=== PATIENT | female | born 1995 | race Caucasian/White ===

== ENCOUNTER 2017-10-28 11:40 | Emergency (ER) | payer OTHER ==
[~2017-10-28] VITALS: Ht 160 cm; Wt 113.2 kg
[~2017-10-28 11:40] MED LIST: DOXY1TAB3 PO; IBUP-1223 PO; PREN1TAB60 PO
[2017-10-28 12:22] LABS: BASOPHILS # (AUTO) 0.04 x10^3/uL (0-0.1); BASOPHILS % (AUTO) 0 % (0-1); EOSINOPHILS # (AUTO) 0.08 x10^3/uL (0-0.4); EOSINOPHILS % (AUTO) 1 % (1-7); LYMPHOCYTES # (AUTO) 1.62 x10^3/uL (1-3.4); LYMPHOCYTES % (AUTO) 15 % (22-44); MD NO; MEAN CORPUSCULAR HEMOGLOBIN 28.7 pg (27.0-34.8); MEAN CORPUSCULAR HGB CONC 33.3 g/dL (32.4-35.8); MEAN CORPUSCULAR VOLUME 86.2 fL (80-100); MEAN PLATELET VOLUME 8.1 fL (7.4-10.4); MONOCYTES % (AUTO) 7 % (2-9); NEUTROPHILS # (AUTO) 8.38 x10^3/uL (1.8-6.8); NEUTROPHILS % (AUTO) 77 % (42-75); PLATELET COUNT 321 x10^3/uL (130-400)
[2017-10-28 12:32] LABS: ALBUMIN 3.6 g/dL (3.4-5.0); ANION GAP 13 mmol/L (5-15); CALCIUM 9.9 mg/dL (8.5-10.1); CHLORIDE 97 mmol/L (98-107); CREATININE 1.41 mg/dL (0.55-1.02)
[2017-10-28 12:37] LABS: ALANINE AMINOTRANSFERASE 38 U/L (12-78); ALKALINE PHOSPHATASE 87 U/L (45-117); BILIRUBIN,TOTAL 0.6 mg/dL (0.2-1.0); TOTAL PROTEIN 8.7 g/dL (6.4-8.2)
[2017-10-28] MEDS ORDERED: PROMETHAZINE 25 MG/ML, 1ML ONE (15:00)
[2017-10-28] MEDS ORDERED: MAALOX/HYOSCYAMINE/LIDOCAINE 45 ML BTL PO ONE (15:00)
[2017-10-28] MEDS ORDERED: PROMETHAZINE 25 MG/ML, 1ML IM ONE (15:00)
[2017-10-28] MEDS ORDERED: SODIUM CHLORIDE FLUSH 10ML SYR IVF ONE (15:00)
[2017-10-28] MEDS ORDERED: MAALOX/HYOSCYAMINE/LIDOCAINE 45 ML BTL ONE (15:00)
[2017-10-28] MEDS ORDERED: FAMOTIDINE 20 MG TABLET PO ONE (15:00)
[2017-10-28] MEDS ORDERED: FAMOTIDINE 20 MG/2 ML IVP ONE (15:00)
[2017-10-28] MEDS ORDERED: SODIUM CHLORIDE 0.9% 1,000ML IVBOLUS ONE (15:00)
[2017-10-28] MEDS ORDERED: FAMOTIDINE 20 MG/2 ML ONE (15:01)
[2017-10-28 15:34] LABS: MICROSCOPIC INDICATED
[2017-10-28 15:35] LABS: CULTURE INDICATED? YES
[2017-10-28] MEDS ORDERED: SODIUM CHLORIDE 0.9%, 500ML IVBOLUS ONE (16:00)
[2017-10-28 16:48] VITALS: BP 116/60
== END 2017-10-28 17:22 | disposition home or self-care (01) ==
LOC: ED 15:55
DX: R11.2 Nausea with vomiting, unspecified (principal); R19.7 Diarrhea, unspecified; R10.11 Right upper quadrant pain; R10.13 Epigastric pain
CPT/HCPCS: 36415; 76700; 80053; 81001; 83690; 84703; 85025; 87086; 96361; 96372; 96374; 99285; J2550; J7030; J7040; S0028

== ENCOUNTER 2019-04-26 11:56 | Inpatient (IN) | payer OTHER ==
[~2019-04-26] VITALS: Ht 160 cm; Wt 104.0 kg
[2019-04-26] MEDS ORDERED: ONDANSETRON 2MG/ML, 2ML IVPush PRN (12:30)
[2019-04-26 12:34] LABS: MICROSCOPIC AUTO
[2019-04-26 12:36] LABS: BASOPHILS # (AUTO) 0.04 x10^3/uL (0-0.1); BASOPHILS % (AUTO) 0 % (0-1); EOSINOPHILS # (AUTO) 0.04 x10^3/uL (0-0.4); EOSINOPHILS % (AUTO) 0 % (1-7); LYMPHOCYTES # (AUTO) 2.16 x10^3/uL (1-3.4); LYMPHOCYTES % (AUTO) 21 % (22-44); MD NO; MEAN CORPUSCULAR HEMOGLOBIN 29.8 pg (27.0-34.8); MEAN CORPUSCULAR HGB CONC 33.8 g/dL (32.4-35.8); MEAN CORPUSCULAR VOLUME 87.9 fL (80-100); MEAN PLATELET VOLUME 8.2 fL (7.4-10.4); MONOCYTES # (AUTO) 0.49 x10^3/uL (0.2-0.8); MONOCYTES % (AUTO) 5 % (2-9); NEUTROPHILS # (AUTO) 7.81 x10^3/uL (1.8-6.8); NEUTROPHILS % (AUTO) 74 % (42-75); PLATELET COUNT 143 x10^3/uL (130-400); RED BLOOD COUNT 4.38 x10^6/uL (3.82-5.3); RED CELL DISTRIBUTION WIDTH 14.4 % (9.6-15.2)
[2019-04-26 12:46] LABS: ALANINE AMINOTRANSFERASE 51 U/L (12-78); ALBUMIN 2.6 g/dL (3.4-5.0); ANION GAP 8 mmol/L (5-15); CALCIUM 9.7 mg/dL (8.5-10.1); CHLORIDE 107 mmol/L (98-107)
[2019-04-26 12:49] LABS: ALKALINE PHOSPHATASE 75 U/L (45-117); BILIRUBIN,TOTAL 0.4 mg/dL (0.2-1.0); CREATININE 0.97 mg/dL (0.55-1.02); TOTAL PROTEIN 7.2 g/dL (6.4-8.2)
[2019-04-26] MEDS ORDERED: PLEASE ENTER HEIGHT AND WEIGHT MC SCH (13:00)
[2019-04-26] MEDS ORDERED: METF500T17 PO (13:12)
[2019-04-26] MEDS ORDERED: LABE300T2 PO (13:12)
[2019-04-26] MEDS ORDERED: NIFE60TA2 PO (13:13)
[2019-04-26] MEDS ORDERED: NPH,100V SQ (13:15)
[2019-04-26] MEDS: LABETALOL 200 MG TABLET PO SCH ×2 (15:00→19:58)
[2019-04-26] MEDS ORDERED: DOCUSATE 100 MG CAPSULE PO PRN (15:00)
[2019-04-26] MEDS: metFORMIN 500 MG TABLET PO SCH (17:14)
[2019-04-26 18:00] LABS: MICROSCOPIC NOT IND
[2019-04-26] MEDS ORDERED: LABETALOL 200 MG TABLET ONE (19:56)
[2019-04-26 21:00] VITALS: BP 154/108
[2019-04-26] MEDS ORDERED: SODIUM CHLORIDE FLUSH 10ML SYR IVF SCH (21:00)
[2019-04-26] MEDS ORDERED: METHYLERGONOVINE 0.2 MG/ML IM ONE (21:30)
[2019-04-26] MEDS: INSULIN NPH HUMAN 100 UNIT/ML, 3ML VIAL SQ-INSULIN SCH (22:19)
[2019-04-27 02:23] LABS: BASOPHILS # (AUTO) 0.03 x10^3/uL (0-0.1); BASOPHILS % (AUTO) 0 % (0-1); EOSINOPHILS # (AUTO) 0.11 x10^3/uL (0-0.4); EOSINOPHILS % (AUTO) 1 % (1-7); LYMPHOCYTES % (AUTO) 18 % (22-44); MD NO; MEAN CORPUSCULAR HEMOGLOBIN 29.5 pg (27.0-34.8); MEAN CORPUSCULAR HGB CONC 33.3 g/dL (32.4-35.8); MEAN CORPUSCULAR VOLUME 88.7 fL (80-100); MEAN PLATELET VOLUME 8.3 fL (7.4-10.4); MONOCYTES # (AUTO) 0.64 x10^3/uL (0.2-0.8); MONOCYTES % (AUTO) 6 % (2-9); NEUTROPHILS # (AUTO) 8.56 x10^3/uL (1.8-6.8); NEUTROPHILS % (AUTO) 76 % (42-75); PLATELET COUNT 117 x10^3/uL (130-400); RED BLOOD COUNT 4.23 x10^6/uL (3.82-5.3); RED CELL DISTRIBUTION WIDTH 14.6 % (9.6-15.2)
[2019-04-27 02:29] LABS: ALANINE AMINOTRANSFERASE 64 U/L (12-78); ALBUMIN 2.4 g/dL (3.4-5.0); ANION GAP 9 mmol/L (5-15); CALCIUM 9.2 mg/dL (8.5-10.1); CHLORIDE 108 mmol/L (98-107); CREATININE 0.69 mg/dL (0.55-1.02)
[2019-04-27 02:31] LABS: ALKALINE PHOSPHATASE 73 U/L (45-117); BILIRUBIN,TOTAL 0.5 mg/dL (0.2-1.0); TOTAL PROTEIN 6.9 g/dL (6.4-8.2)
[2019-04-27] MEDS ORDERED: BETAMETHASONE 6 MG/ML, 5ML IM ONE (02:39)
[2019-04-27] MEDS: BETAMETHASONE 6 MG/ML, 5ML IM SCH (02:46)
[2019-04-27] MEDS: D5%-LACTATED RINGERS 1,000 ML IV SCH ×2 (02:50→12:30)
[2019-04-27] MEDS ORDERED: LABETALOL 200 MG TABLET ONE ×2 (03:56→12:16)
[2019-04-27] MEDS ORDERED: LABETALOL 100 MG TABLET ONE ×3 (04:04→20:27)
[2019-04-27] MEDS: LABETALOL 200 MG TABLET PO SCH (04:11)
[2019-04-27 05:43] LABS: MEAN CORPUSCULAR HGB CONC 33.4 g/dL (32.4-35.8); MEAN CORPUSCULAR VOLUME 89.6 fL (80-100); MEAN PLATELET VOLUME 8.5 fL (7.4-10.4); PLATELET COUNT 99 x10^3/uL (130-400); RED BLOOD COUNT 4.28 x10^6/uL (3.82-5.3); RED CELL DISTRIBUTION WIDTH 14.5 % (9.6-15.2)
[2019-04-27 05:46] LABS: CHLORIDE 107 mmol/L (98-107)
[2019-04-27 05:53] LABS: ALANINE AMINOTRANSFERASE 75 U/L (12-78); ALBUMIN 2.5 g/dL (3.4-5.0); ALKALINE PHOSPHATASE 76 U/L (45-117); ANION GAP 9 mmol/L (5-15); BILIRUBIN,TOTAL 0.6 mg/dL (0.2-1.0); CALCIUM 9.3 mg/dL (8.5-10.1); CREATININE 0.63 mg/dL (0.55-1.02); TOTAL PROTEIN 6.8 g/dL (6.4-8.2)
[2019-04-27] MEDS ORDERED: MAGNESIUM SULF. PMX 20GM/500ML 500 ML IV ONE ×3 (08:06→23:59)
[2019-04-27] MEDS ORDERED: MAGNESIUM SULFATE PMX 4GM/100M 0 ML ONE (08:06)
[2019-04-27] MEDS ORDERED: MAGNESIUM SULFATE PMX 2GM/50ML 0 ML ONE (08:07)
[2019-04-27] MEDS ORDERED: ONDANSETRON 2MG/ML, 2ML ONE (08:16)
[2019-04-27] MEDS ORDERED: MAGNESIUM SULFATE PMX 4GM/100M 100 ML IVPB ONE (08:30)
[2019-04-27] MEDS ORDERED: MAGNESIUM SULFATE PMX 2GM/50ML 50 ML IVPB ONE (08:30)
[2019-04-27] MEDS ORDERED: niFEDipine ER 60 MG TABLET.ER PO ONE (08:54)
[2019-04-27] MEDS ORDERED: metFORMIN 500 MG TABLET ONE ×3 (08:54→17:17)
[2019-04-27] MEDS ORDERED: PRENATAL VIT/IRON/FA 1 EACH TABLET ONE (08:57)
[2019-04-27] MEDS: metFORMIN 500 MG TABLET PO SCH ×2 (09:00→17:19)
[2019-04-27] MEDS: niFEDipine ER 60 MG TABLET.ER PO SCH (09:00)
[2019-04-27] MEDS ORDERED: NEWBORN KIT ONE ×2 (10:05)
[2019-04-27 10:50] LABS: MICROSCOPIC AUTO
[2019-04-27] MEDS ORDERED: LABETALOL 100 MG TABLET PO ONE (12:30)
[2019-04-27 12:48] LABS: MEAN CORPUSCULAR HGB CONC 33.5 g/dL (32.4-35.8); MEAN CORPUSCULAR VOLUME 89.5 fL (80-100); MEAN PLATELET VOLUME 8.5 fL (7.4-10.4); PLATELET COUNT 113 x10^3/uL (130-400); RED BLOOD COUNT 4.43 x10^6/uL (3.82-5.3); RED CELL DISTRIBUTION WIDTH 14.7 % (9.6-15.2)
[2019-04-27 12:49] LABS: ALANINE AMINOTRANSFERASE 78 U/L (12-78); ALBUMIN 2.6 g/dL (3.4-5.0); ANION GAP 10 mmol/L (5-15); CALCIUM 9.4 mg/dL (8.5-10.1); CHLORIDE 104 mmol/L (98-107); CREATININE 0.68 mg/dL (0.55-1.02)
[2019-04-27 12:51] LABS: ALKALINE PHOSPHATASE 85 U/L (45-117); BILIRUBIN,TOTAL 0.6 mg/dL (0.2-1.0); TOTAL PROTEIN 7.6 g/dL (6.4-8.2)
[2019-04-27 13:28] LABS: BASOPHILS # (AUTO) 0.02 x10^3/uL (0-0.1); BASOPHILS % (AUTO) 0 % (0-1); EOSINOPHILS # (AUTO) 0.14 x10^3/uL (0-0.4); EOSINOPHILS % (AUTO) 1 % (1-7); LYMPHOCYTES # (AUTO) 1.05 x10^3/uL (1-3.4); LYMPHOCYTES % (AUTO) 11 % (22-44); MD SCAN; MONOCYTES # (AUTO) 0.16 x10^3/uL (0.2-0.8); MONOCYTES % (AUTO) 2 % (2-9); NEUTROPHILS # (AUTO) 8.58 x10^3/uL (1.8-6.8); NEUTROPHILS % (AUTO) 86 % (42-75)
[2019-04-27] MEDS: LACTATED RINGERS 1,000 ML IV PRN (14:05)
[2019-04-27] MEDS ORDERED: INSULIN LISPRO 100 UNITS/ML, PEN SQ-INSULIN ONE (15:00)
[2019-04-27] MEDS: MAGNESIUM SULF. PMX 20GM/500ML 500 ML IV SCH (15:17)
[2019-04-27] MEDS: PRENATAL VIT/IRON/FA 1 EACH TABLET PO SCH (17:19)
[2019-04-27] MEDS ORDERED: LABETALOL 100 MG TABLET PO SCH (18:00)
[2019-04-27 19:23] LABS: BASOPHILS # (AUTO) 0.03 x10^3/uL (0-0.1); BASOPHILS % (AUTO) 0 % (0-1); EOSINOPHILS # (AUTO) 0.22 x10^3/uL (0-0.4); EOSINOPHILS % (AUTO) 2 % (1-7); LYMPHOCYTES # (AUTO) 1.05 x10^3/uL (1-3.4); LYMPHOCYTES % (AUTO) 9 % (22-44); MD NO; MEAN CORPUSCULAR HEMOGLOBIN 29.7 pg (27.0-34.8); MEAN CORPUSCULAR HGB CONC 33.1 g/dL (32.4-35.8); MEAN CORPUSCULAR VOLUME 89.7 fL (80-100); MEAN PLATELET VOLUME 8.6 fL (7.4-10.4); MONOCYTES # (AUTO) 0.36 x10^3/uL (0.2-0.8); MONOCYTES % (AUTO) 3 % (2-9); NEUTROPHILS % (AUTO) 86 % (42-75); PLATELET COUNT 114 x10^3/uL (130-400); RED CELL DISTRIBUTION WIDTH 14.4 % (9.6-15.2)
[2019-04-27 19:33] LABS: ALANINE AMINOTRANSFERASE 69 U/L (12-78); ALBUMIN 2.3 g/dL (3.4-5.0); ANION GAP 12 mmol/L (5-15); CALCIUM 8.5 mg/dL (8.5-10.1); CHLORIDE 103 mmol/L (98-107); CREATININE 0.92 mg/dL (0.55-1.02)
[2019-04-27 19:37] LABS: ALKALINE PHOSPHATASE 73 U/L (45-117); BILIRUBIN,TOTAL 0.3 mg/dL (0.2-1.0); TOTAL PROTEIN 6.6 g/dL (6.4-8.2)
[2019-04-27] MEDS: LABETALOL 100 MG TABLET PO SCH (20:30)
[2019-04-27] MEDS: INSULIN NPH HUMAN 100 UNIT/ML, 3ML VIAL SQ-INSULIN SCH (22:35)
[2019-04-28] MEDS: MAGNESIUM SULF. PMX 20GM/500ML 500 ML IV SCH ×2 (01:15→22:19)
[2019-04-28] MEDS: BETAMETHASONE 6 MG/ML, 5ML IM SCH (02:45)
[2019-04-28] MEDS: LACTATED RINGERS 1,000 ML IV PRN (04:00)
[2019-04-28 05:07] LABS: BASOPHILS # (AUTO) 0.02 x10^3/uL (0-0.1); BASOPHILS % (AUTO) 0 % (0-1); EOSINOPHILS % (AUTO) 2 % (1-7); LYMPHOCYTES # (AUTO) 1.29 x10^3/uL (1-3.4); LYMPHOCYTES % (AUTO) 11 % (22-44); MD NO; MEAN CORPUSCULAR HEMOGLOBIN 30.1 pg (27.0-34.8); MEAN CORPUSCULAR HGB CONC 33.6 g/dL (32.4-35.8); MEAN CORPUSCULAR VOLUME 89.8 fL (80-100); MEAN PLATELET VOLUME 8.6 fL (7.4-10.4); MONOCYTES # (AUTO) 0.35 x10^3/uL (0.2-0.8); MONOCYTES % (AUTO) 3 % (2-9); NEUTROPHILS # (AUTO) 9.67 x10^3/uL (1.8-6.8); NEUTROPHILS % (AUTO) 84 % (42-75); PLATELET COUNT 111 x10^3/uL (130-400); RED BLOOD COUNT 3.78 x10^6/uL (3.82-5.3); RED CELL DISTRIBUTION WIDTH 14.4 % (9.6-15.2)
[2019-04-28 05:11] LABS: ALBUMIN 2.4 g/dL (3.4-5.0); ANION GAP 8 mmol/L (5-15); CALCIUM 7.5 mg/dL (8.5-10.1); CHLORIDE 105 mmol/L (98-107)
[2019-04-28 05:15] LABS: ALANINE AMINOTRANSFERASE 70 U/L (12-78); ALKALINE PHOSPHATASE 66 U/L (45-117); BILIRUBIN,TOTAL 0.3 mg/dL (0.2-1.0); CREATININE 0.61 mg/dL (0.55-1.02); TOTAL PROTEIN 6.5 g/dL (6.4-8.2)
[2019-04-28] MEDS ORDERED: LABETALOL 100 MG TABLET ONE ×2 (05:18→13:45)
[2019-04-28] MEDS: LABETALOL 100 MG TABLET PO SCH ×2 (05:20→13:50)
[2019-04-28] MEDS ORDERED: metFORMIN 500 MG TABLET ONE ×2 (07:34→17:21)
[2019-04-28] MEDS: metFORMIN 500 MG TABLET PO SCH ×2 (07:49→17:23)
[2019-04-28] MEDS: PRENATAL VIT/IRON/FA 1 EACH TABLET PO SCH (07:49)
[2019-04-28] MEDS ORDERED: niFEDipine ER 60 MG TABLET.ER PO ONE (09:09)
[2019-04-28] MEDS: niFEDipine ER 60 MG TABLET.ER PO SCH (09:10)
[2019-04-28] MEDS ORDERED: INSULIN LISPRO 100 UNITS/ML, PEN SQ-INSULIN ONE ×2 (09:45→18:00)
[2019-04-28 20:03] LABS: MEAN CORPUSCULAR HEMOGLOBIN 29.9 pg (27.0-34.8); MEAN CORPUSCULAR HGB CONC 33.8 g/dL (32.4-35.8); MEAN CORPUSCULAR VOLUME 88.5 fL (80-100); MEAN PLATELET VOLUME 8.7 fL (7.4-10.4); PLATELET COUNT 132 x10^3/uL (130-400); RED BLOOD COUNT 3.95 x10^6/uL (3.82-5.3); RED CELL DISTRIBUTION WIDTH 14.5 % (9.6-15.2)
[2019-04-28 20:06] LABS: ALANINE AMINOTRANSFERASE 92 U/L (12-78); ALBUMIN 2.6 g/dL (3.4-5.0); ANION GAP 10 mmol/L (5-15); CALCIUM 7.7 mg/dL (8.5-10.1); CHLORIDE 101 mmol/L (98-107)
[2019-04-28 20:09] LABS: ALKALINE PHOSPHATASE 74 U/L (45-117); BILIRUBIN,TOTAL 0.5 mg/dL (0.2-1.0); CREATININE 1.16 mg/dL (0.55-1.02)
[2019-04-28] MEDS: INSULIN NPH HUMAN 100 UNIT/ML, 3ML VIAL SQ-INSULIN SCH (21:00)
[2019-04-28] MEDS ORDERED: SODIUM CITRATE/CITRIC ACID 30 ML UDC ONE (21:34)
[2019-04-28] MEDS ORDERED: METOCLOPRAMIDE 5 MG/ML, 2ML ONE (21:34)
[2019-04-28] MEDS ORDERED: LACTATED RINGERS 1,000 ML IV PRN (21:36)
[2019-04-28] MEDS ORDERED: MAGNESIUM SULFATE PMX 4GM/100M 100 ML ONE (21:36)
[2019-04-28] MEDS ORDERED: MAGNESIUM SULF. PMX 20GM/500ML 500 ML IV ONE (21:37)
[2019-04-28] MEDS ORDERED: MAGNESIUM SULFATE PMX 2GM/50ML 50 ML ONE (21:37)
[2019-04-28] MEDS ORDERED: FENTANYL PF 100 MCG/2ML ONE (21:51)
[2019-04-28] MEDS ORDERED: CEFAZOLIN 1,000 MG ONE ×2 (21:54)
[2019-04-28] MEDS ORDERED: OXYTOCIN 10 UNITS/ML, 1ML ONE ×5 (21:54)
[2019-04-28] MEDS ORDERED: LACTATED RINGERS 1,000 ML IVBOLUS ONE (22:00)
[2019-04-28] MEDS ORDERED: CALCIUM GLUCONATE 4.6 MEQ/10 ML IV PRN (22:00)
[2019-04-28] MEDS ORDERED: MAGNESIUM SULFATE PMX 2GM/50ML 50 ML IVPB ONE (22:00)
[2019-04-28] MEDS ORDERED: MAGNESIUM SULFATE PMX 4GM/100M 100 ML IVPB ONE (22:00)
[2019-04-28] MEDS ORDERED: SODIUM CITRATE/CITRIC ACID 30 ML UDC PO ONE (22:00)
[2019-04-28] MEDS ORDERED: METOCLOPRAMIDE 5 MG/ML, 2ML IV ONE (22:00)
[2019-04-28] MEDS ORDERED: OXYTOCIN 30U/ 0.9% NaCL 500ML 500 ML ONE (22:31)
[2019-04-28] MEDS ORDERED: LACTATED RINGERS 1,000 ML IV SCH ×2 (23:56)
[2019-04-29] MEDS ORDERED: PROMETHAZINE 25 MG/ML, 1ML IV PRN
[2019-04-29] MEDS ORDERED: LABETALOL 5MG/ML, 20ML IV PRN
[2019-04-29] MEDS ORDERED: MISOPROSTOL 200 MCG TABLET SL PRN
[2019-04-29] MEDS ORDERED: MORPHINE SULFATE 4 MG/ML, 1ML IVPush PRN
[2019-04-29] MEDS ORDERED: DIPHENHYDRAMINE 50 MG/ML, 1ML IVPush PRN
[2019-04-29] MEDS ORDERED: OXYcodone 5 MG/5 ML ORAL.SOL UDC PO PRN
[2019-04-29] MEDS ORDERED: hydrALAzine 20 MG/ML, 1ML IV PRN
[2019-04-29] MEDS ORDERED: FENTANYL PF 100 MCG/2ML IV PRN
[2019-04-29] MEDS ORDERED: ONDANSETRON 2MG/ML, 2ML IV PRN ×2
[2019-04-29] MEDS ORDERED: EPHEDRINE 50 MG/ML, 1ML IVPush PRN
[2019-04-29] MEDS: OXYTOCIN 30U/ 0.9% NaCL 500ML 500 ML IV SCH ×2 (01:03→09:56)
[2019-04-29 01:14] VITALS: BP 144/98
[2019-04-29] MEDS ORDERED: OXYcodone 5 MG/5 ML ORAL.SOL UDC ONE ×2 (01:19→14:50)
[2019-04-29] MEDS ORDERED: LABETALOL 100 MG TABLET ONE ×2 (01:21→08:06)
[2019-04-29] MEDS: LABETALOL 100 MG TABLET PO SCH ×2 (01:22→08:51)
[2019-04-29] MEDS ORDERED: MORPHINE SULFATE 4 MG/ML, 1ML ONE (03:03)
[2019-04-29] MEDS ORDERED: ACETAMINOPHEN 325 MG TABLET ONE ×3 (03:39→12:27)
[2019-04-29] MEDS: ACETAMINOPHEN 325 MG TABLET PO PRN ×3 (03:44→12:29)
[2019-04-29 04:50] LABS: ALANINE AMINOTRANSFERASE 76 U/L (12-78); ALBUMIN 2.3 g/dL (3.4-5.0); ANION GAP 7 mmol/L (5-15); CHLORIDE 107 mmol/L (98-107); CREATININE 0.66 mg/dL (0.55-1.02)
[2019-04-29 04:53] LABS: ALKALINE PHOSPHATASE 67 U/L (45-117); BILIRUBIN,TOTAL 0.2 mg/dL (0.2-1.0); TOTAL PROTEIN 6.1 g/dL (6.4-8.2)
[2019-04-29 04:56] LABS: BASOPHILS # (AUTO) 0.01 x10^3/uL (0-0.1); BASOPHILS % (AUTO) 0 % (0-1); EOSINOPHILS # (AUTO) 0.27 x10^3/uL (0-0.4); EOSINOPHILS % (AUTO) 2 % (1-7); LYMPHOCYTES # (AUTO) 1.63 x10^3/uL (1-3.4); LYMPHOCYTES % (AUTO) 10 % (22-44); MD NO; MEAN CORPUSCULAR HEMOGLOBIN 29.8 pg (27.0-34.8); MEAN CORPUSCULAR VOLUME 90.4 fL (80-100); MEAN PLATELET VOLUME 8.9 fL (7.4-10.4); MONOCYTES # (AUTO) 0.82 x10^3/uL (0.2-0.8); MONOCYTES % (AUTO) 5 % (2-9); NEUTROPHILS # (AUTO) 13.23 x10^3/uL (1.8-6.8); NEUTROPHILS % (AUTO) 83 % (42-75); PLATELET COUNT 128 x10^3/uL (130-400); RED BLOOD COUNT 3.65 x10^6/uL (3.82-5.3); RED CELL DISTRIBUTION WIDTH 14.5 % (9.6-15.2)
[2019-04-29] MEDS ORDERED: MISOPROSTOL 200 MCG TABLET PO ONE (05:30)
[2019-04-29] MEDS ORDERED: MISOPROSTOL 100 MCG TABLET PO SCH (05:30)
[2019-04-29] MEDS ORDERED: OXYcodone IR 5MG TABLET ONE ×4 (06:01→17:29)
[2019-04-29] MEDS: OXYcodone IR 5MG TABLET PO PRN ×4 (06:06→17:30)
[2019-04-29 06:23] VITALS: BP 144/95
[2019-04-29] MEDS ORDERED: MAGNESIUM SULF. PMX 20GM/500ML 500 ML IV ONE ×2 (07:20→19:02)
[2019-04-29] MEDS ORDERED: MISOPROSTOL 200 MCG TABLET ONE (08:00)
[2019-04-29] MEDS: metFORMIN 500 MG TABLET PO SCH ×2 (08:00→17:00)
[2019-04-29] MEDS ORDERED: PRENATAL VIT/IRON/FA 1 EACH TABLET ONE (08:05)
[2019-04-29] MEDS ORDERED: SIMETHICONE 80 MG CHEW TAB ONE ×2 (08:06→20:28)
[2019-04-29] MEDS ORDERED: DOCUSATE 100 MG CAPSULE ONE ×2 (08:06→20:26)
[2019-04-29] MEDS: MAGNESIUM SULF. PMX 20GM/500ML 500 ML IV SCH ×2 (08:23→19:05)
[2019-04-29] MEDS: PRENATAL VIT/IRON/FA 1 EACH TABLET PO SCH (08:24)
[2019-04-29] MEDS: SIMETHICONE 80 MG CHEW TAB PO PRN ×3 (08:24→20:29)
[2019-04-29] MEDS ORDERED: niFEDipine ER 60 MG TABLET.ER PO ONE (09:34)
[2019-04-29] MEDS: niFEDipine ER 60 MG TABLET.ER PO SCH (09:35)
[2019-04-29] MEDS: LACTATED RINGERS 1,000 ML IV PRN (14:54)
[2019-04-29] MEDS ORDERED: OXYcodone/APAP 5/325MG TABLET ONE ×2 (15:00→20:28)
[2019-04-29] MEDS: OXYcodone/APAP 5/325MG TABLET PO PRN ×2 (15:06→20:29)
[2019-04-29] MEDS: INSULIN NPH HUMAN 100 UNIT/ML, 3ML VIAL SQ-INSULIN SCH (19:05)
[2019-04-29 19:27] VITALS: BP 131/90
[2019-04-29] MEDS: DOCUSATE 100 MG CAPSULE PO PRN (20:29)
[2019-04-29 23:30] VITALS: BP 136/90
[2019-04-30] MEDS: OXYcodone/APAP 5/325MG TABLET PO PRN (00:33)
[2019-04-30] MEDS: ACETAMINOPHEN 325 MG TABLET PO PRN ×3 (02:19→16:26)
[2019-04-30] MEDS: OXYcodone IR 5MG TABLET PO PRN ×5 (02:26→20:46)
[2019-04-30 03:48] VITALS: BP 142/92
[2019-04-30 08:15] VITALS: BP 143/93
[2019-04-30] MEDS: niFEDipine ER 60 MG TABLET.ER PO SCH (08:16)
[2019-04-30] MEDS: metFORMIN 500 MG TABLET PO SCH ×2 (08:17→16:26)
[2019-04-30] MEDS: DOCUSATE 100 MG CAPSULE PO PRN ×2 (08:18→20:46)
[2019-04-30 12:00] VITALS: BP 104/70
[2019-04-30 16:33] VITALS: BP 108/74
[2019-04-30 20:00] VITALS: BP 133/98
[2019-04-30] MEDS: INSULIN NPH HUMAN 100 UNIT/ML, 3ML VIAL SQ-INSULIN SCH (21:35)
[2019-05-01] MEDS: OXYcodone IR 5MG TABLET PO PRN ×5 (00:54→19:43)
[2019-05-01 00:55] VITALS: BP 134/94
[2019-05-01 04:05] VITALS: BP 129/92
[2019-05-01 06:44] LABS: MEAN CORPUSCULAR HEMOGLOBIN 30.2 pg (27.0-34.8); MEAN CORPUSCULAR HGB CONC 33.6 g/dL (32.4-35.8); MEAN CORPUSCULAR VOLUME 89.8 fL (80-100); MEAN PLATELET VOLUME 7.4 fL (7.4-10.4); PLATELET COUNT 89 x10^3/uL (130-400); RED BLOOD COUNT 3.75 x10^6/uL (3.82-5.3); RED CELL DISTRIBUTION WIDTH 14.5 % (9.6-15.2)
[2019-05-01 06:48] LABS: ALBUMIN 2.4 g/dL (3.4-5.0); ANION GAP 7 mmol/L (5-15); CALCIUM 8.4 mg/dL (8.5-10.1); CHLORIDE 103 mmol/L (98-107)
[2019-05-01 06:51] LABS: ALANINE AMINOTRANSFERASE 129 U/L (12-78); ALKALINE PHOSPHATASE 74 U/L (45-117); BILIRUBIN,TOTAL 0.5 mg/dL (0.2-1.0); CREATININE 0.62 mg/dL (0.55-1.02); TOTAL PROTEIN 6.7 g/dL (6.4-8.2)
[2019-05-01 07:37] VITALS: BP 131/96
[2019-05-01 08:03] LABS: BASOPHILS # (AUTO) 0.01 x10^3/uL (0-0.1); BASOPHILS % (AUTO) 0 % (0-1); EOSINOPHILS # (AUTO) 0.39 x10^3/uL (0-0.4); EOSINOPHILS % (AUTO) 3 % (1-7); LYMPHOCYTES # (AUTO) 2.08 x10^3/uL (1-3.4); LYMPHOCYTES % (AUTO) 15 % (22-44); MD SCAN; MONOCYTES # (AUTO) 0.74 x10^3/uL (0.2-0.8); MONOCYTES % (AUTO) 5 % (2-9); NEUTROPHILS # (AUTO) 11.15 x10^3/uL (1.8-6.8); NEUTROPHILS % (AUTO) 78 % (42-75)
[2019-05-01] MEDS: niFEDipine ER 60 MG TABLET.ER PO SCH (08:57)
[2019-05-01] MEDS: metFORMIN 500 MG TABLET PO SCH ×2 (08:57→16:59)
[2019-05-01] MEDS: DOCUSATE 100 MG CAPSULE PO PRN ×2 (08:57→19:42)
[2019-05-01 13:31] VITALS: BP 101/68
[2019-05-01] MEDS: ACETAMINOPHEN 325 MG TABLET PO PRN (16:01)
[2019-05-01 20:00] VITALS: BP 131/86
[2019-05-01] MEDS: INSULIN NPH HUMAN 100 UNIT/ML, 3ML VIAL SQ-INSULIN SCH (21:00)
[2019-05-02] VITALS (7 sets, daily range): BP systolic 101–138; BP diastolic 68–97
[2019-05-02] MEDS: OXYcodone IR 5MG TABLET PO PRN ×2 (03:52→08:32)
[2019-05-02] MEDS: niFEDipine ER 60 MG TABLET.ER PO SCH (08:32)
[2019-05-02] MEDS: DOCUSATE 100 MG CAPSULE PO PRN ×2 (08:32→21:25)
[2019-05-02] MEDS: metFORMIN 500 MG TABLET PO SCH ×2 (08:32→17:13)
[2019-05-02 10:22] LABS: MEAN CORPUSCULAR HEMOGLOBIN 29.2 pg (27.0-34.8); MEAN CORPUSCULAR HGB CONC 32.8 g/dL (32.4-35.8); MEAN CORPUSCULAR VOLUME 89.1 fL (80-100); MEAN PLATELET VOLUME 7.6 fL (7.4-10.4); PLATELET COUNT 143 x10^3/uL (130-400); RED BLOOD COUNT 3.59 x10^6/uL (3.82-5.3); RED CELL DISTRIBUTION WIDTH 14.3 % (9.6-15.2)
[2019-05-02 10:30] LABS: ALANINE AMINOTRANSFERASE 106 U/L (12-78); ALBUMIN 2.4 g/dL (3.4-5.0); ANION GAP 10 mmol/L (5-15); CHLORIDE 106 mmol/L (98-107); CREATININE 0.57 mg/dL (0.55-1.02)
[2019-05-02 10:32] LABS: ALKALINE PHOSPHATASE 68 U/L (45-117); BILIRUBIN,TOTAL 0.3 mg/dL (0.2-1.0); TOTAL PROTEIN 6.8 g/dL (6.4-8.2)
[2019-05-02] MEDS: OXYcodone/APAP 5/325MG TABLET PO PRN (12:33)
[2019-05-02] MEDS: ACETAMINOPHEN 325 MG TABLET PO PRN (12:33)
[2019-05-03] MEDS ORDERED: OXYC-302 PO (01:44)
[2019-05-03] MEDS ORDERED: DOCU-131 PO (01:46)
[2019-05-03 05:00] VITALS: BP 125/87
[2019-05-03 06:44] LABS: MEAN CORPUSCULAR HEMOGLOBIN 29.8 pg (27.0-34.8); MEAN CORPUSCULAR VOLUME 90.3 fL (80-100); MEAN PLATELET VOLUME 8.1 fL (7.4-10.4); PLATELET COUNT 196 x10^3/uL (130-400); RED BLOOD COUNT 3.41 x10^6/uL (3.82-5.3); RED CELL DISTRIBUTION WIDTH 14.9 % (9.6-15.2)
[2019-05-03 06:48] LABS: ALANINE AMINOTRANSFERASE 84 U/L (12-78); ALBUMIN 2.4 g/dL (3.4-5.0); ANION GAP 5 mmol/L (5-15); CALCIUM 9.1 mg/dL (8.5-10.1); CHLORIDE 109 mmol/L (98-107); CREATININE 0.62 mg/dL (0.55-1.02)
[2019-05-03 06:50] LABS: ALKALINE PHOSPHATASE 63 U/L (45-117); BILIRUBIN,TOTAL 0.3 mg/dL (0.2-1.0); TOTAL PROTEIN 6.9 g/dL (6.4-8.2)
[2019-05-03 07:02] LABS: MD YES
[2019-05-03 07:03] LABS: <PLATELET ESTIMATE> ADEQUATE; <PLT MORPHOLOGY> NORMAL PLT MORPH; <RBC MORPHOLOGY> NORMAL; EOS#(MANUAL) 0.54 x10^3/uL (0.0-0.4); EOS% (MANUAL) 4 % (1-7); LYMPH#(MANUAL) 2.95 x10^3/uL (1-3.4); LYMPHS% (MANUAL) 22 % (22-44); MONOS#(MANUAL) 0.67 x10^3/uL (0.3-2.7); MONOS% (MANUAL) 5 % (2-9); MYELOCYTES# (MANUAL) 0.13 x10^3/uL (0-0); MYELOCYTES% (MANUAL) 1 % (0-0); SEG#(MANUAL) 9.11 x10^3/uL (1.8-6.8); SEGS% (MANUAL) 68 % (42-75)
[2019-05-03 07:45] VITALS: BP 137/95
[2019-05-03] MEDS: metFORMIN 500 MG TABLET PO SCH ×2 (08:14→17:25)
[2019-05-03] MEDS: niFEDipine ER 60 MG TABLET.ER PO SCH (08:14)
[2019-05-03] MEDS: DOCUSATE 100 MG CAPSULE PO PRN (08:14)
[2019-05-03 17:00] VITALS: BP 112/79
[2019-05-03 19:02] VITALS: BP 114/79
== END 2019-05-03 21:13 | disposition home or self-care (01) | DRG 785 ==
LOC: 2NE 11:57 → LDIP 12:09 → 2NE 14:15 → 2NW 04-29 23:30
PROVIDERS: ADMIT Obstetrics & Gynecology Maternal & Fetal Medicine; ATTEND Obstetrics & Gynecology Maternal & Fetal Medicine
PROC: 0T9B70Z Drainage of Bladder with Drainage Device, Via Natural or Artificial Opening (ICD-10-PCS; 2019-04-26)
PROC: 10D00Z0 Extraction of Products of Conception, High, Open Approach (ICD-10-PCS; principal; 2019-04-28)
PROC: 0UB70ZZ Excision of Bilateral Fallopian Tubes, Open Approach (ICD-10-PCS; 2019-04-28)
DX: O24.429 Gestational diabetes mellitus in childbirth, unspecified control (principal); N19 Unspecified kidney failure; O14.14 Severe pre-eclampsia complicating childbirth; Z37.2 Twins, both liveborn; O77.0 Labor and delivery complicated by meconium in amniotic fluid; O36.5920 Maternal care for other known or suspected poor fetal growth, second trimester, not applicable or unspecified; Z3A.25 25 weeks gestation of pregnancy; O32.2XX0 Maternal care for transverse and oblique lie, not applicable or unspecified; O30.042 Twin pregnancy, dichorionic/diamniotic, second trimester; O99.89 Other specified diseases and conditions complicating pregnancy, childbirth and the puerperium
CPT/HCPCS: 36415; J7121; 80053; 81001; 81003; 81050; 82150; 82570; 82803; 82962; 83690; 83735; 84156; 84550; 85025; 85027; 86850; 86900; 86923; 88302; 88305; G0378; J0690; J0702; J1815; J2405; J3010; J2270; J2590; J2765; J3475; J7120